=== PATIENT | female | born 1985 | race Caucasian/White ===

== ENCOUNTER 2022-05-07 09:17 | Outpatient (CLI) | payer OTHER, SELFPAY ==
[2022-05-07 12:46] LABS: Albumin* 4.4 g/dL (3.3-5.0)
[2022-05-07 12:49] LABS: Alanine Aminotransferase* 19 U/L (4-35); Alkaline Phosphatase* 82 U/L (40-150); Aspartate Amino Transferase* 24 U/L (12-35); Bilirubin Direct* 0.2 mg/dL (0.0-0.5); Bilirubin Total* 0.4 mg/dL (0.1-1.5); Total Protein* 7.3 g/dL (6.0-8.3)
== END 2022-05-07 09:18 | disposition home or self-care (01) ==
LOC: LONREF 09:21
PROVIDERS: PCP Family Medicine; Visit Provider Family Medicine
DX: Z01.419 Encounter for gynecological examination (general) (routine) without abnormal findings (principal); R10.9 Unspecified abdominal pain; K76.89 Other specified diseases of liver
CPT/HCPCS: 80076

== ENCOUNTER 2022-05-14 08:26 | Outpatient (CLI) | payer OTHER, SELFPAY ==
--- NOTE | 2022-05-14 09:00 | CRLHL7_ITS ---
For Patients: As a result of the Century Cures Act, medical imaging exams and procedure reports are released immediately into your electronic medical record. You may view this report before your referring provider. If you have questions, please contact your health care provider. Indication: Evaluate liver or pancreas cyst/mass Technique: Postcontrast CT abdomen and pelvis. 72 cc Isovue 370 intravenous contrast. Please note that all CT scans at this facility use dose modulation, iterative reconstruction, and/or weight-based dosing when appropriate to reduce radiation dose to as low as reasonably achievable. Comparison: None Findings: Lung bases are clear. No free intraperitoneal air. Normal liver. No suspicious intrahepatic mass. The gallbladder is normal. No calcified gallstones or biliary obstruction. No pancreatic mass. The spleen is normal. Normal adrenal glands. The kidneys are normal. No adenopathy. No small bowel obstruction. The uterus is located within the right paramidline of the pelvis. A collapsing right ovarian cyst is present measuring 2.1 cm. No uterine fibroid. Normal left ovary. Increased stool in the rectum. No inflammatory changes. The appendix is normal. Degenerative disc disease at L5-S1. No fracture is present. The bladder is distended. No wall thickening. Impression: No intra-abdominal cystic mass. Increased stool within the rectum suggesting constipation. Incidental distended bladder without hydronephrosis. Also incidental collapsing right ovarian cyst. Please note that all CT scans at this facility use dose modulation, iterative reconstruction, and/or weight-based dosing when appropriate to reduce radiation dose to as low as reasonably achievable. Dictated by Haroon Hahn MD @ 05/14/2022 12:09:57 PM (Electronically Signed)
== END 2022-05-14 08:27 | disposition home or self-care (01) ==
PROVIDERS: PCP Family Medicine; Visit Provider Family Medicine
DX: K76.89 Other specified diseases of liver (principal)
CPT/HCPCS: 74177; Q9967

== ENCOUNTER 2023-11-11 14:04 | Outpatient (CLI) | payer OTHER, SELFPAY | END 2023-11-11 14:05 | disposition home or self-care (01) | LOC: LKVREF 14:07 | PROVIDERS: PCP Family Medicine; Visit Provider Family Medicine | DX: Z13.220 Encounter for screening for lipoid disorders (principal) | CPT/HCPCS: 80061 ==

== ENCOUNTER 2024-09-24 09:16 | Outpatient (CLI) | payer BC, SELFPAY | END 2024-09-24 09:17 | disposition home or self-care (01) | PROVIDERS: PCP Family Medicine; Visit Provider Family Medicine | DX: I10 Essential (primary) hypertension (principal); R63.5 Abnormal weight gain; Z13.0 Encounter for screening for diseases of the blood and blood-forming organs and certain disorders involving the immune mechanism | CPT/HCPCS: 80053; 84443 ==

== ENCOUNTER 2024-12-14 11:12 | Emergency (ER) | payer BC, SELFPAY ==
--- OUTSIDE RECORDS SUMMARY | 2024-12-14 11:13 | XMS_ITS | Patient Health Record ---
Author Organization [facility] Billing Info Address [address] [place] [id number] Care Team Providers Care Human Resources Intern Name Role Phone MARGY Eisenberg Unavailable Allergies Allergen (clinical drug ingredient) Drug/Non Drug Allergy documented on EMR Reaction Allergy Type Onset Date Status amoxicillin / clavulanate Augmentin hives/swelling Drug Allergy Active Reason For Referral No Information Medications Medication SIG (Take, Route, Fr equency, Duration) Notes Start Date End Date Status Skippers 7.5-325 MG 1-2 tablet as needed Orally every 6 hrs 11/20/2012 Not-Taking Tramadol HCl 50 MG 1-2 tablets as neede d Orally every 6 hrs 05/01/2014 Not-Taking Vitamin Act terrance Abilify 5 MG 1 tablet Orally Once a day Active Nexium Not-Taking Mirena 20 MCG/24HR 2010 Not-Taking Concerta Not-Taking Voltaren 75 mg 1 tablet Orally Two times a day for 30 day(s) 05/01/2014 Not-Taking Robaxin-750 750 MG 1 tablet Orally ever y 6 hrs for 30 day(s) 05/01/2014 Not-Taking Celebrex 200 mg 1 capsule Orally Onc e a day for 30 day(s) 06/26/2014 Not-Taking Topamax 50 MG 1 tablet Orally Twice a day Not-Taking Social History Tobacco Use: Social History Observation Description Date Details (start date - stop date) Current some da y smoker NA - NA Tobacco Status: Question Answer Notes Patient is a current some day smoker 6-8/da bri Problems Problem Type SNOMED Code ICD Code Onset Dates Problem Status W/U Status Risk Notes Problem 43332206 Pre-conception counseling (V26.49) Active confirmed Problem 936121064 Low back pain (724.2) Active confirmed Problem 594439528 Encounter for IUD removal (Z30.432) Active confirmed Plan Of Treatment Pending Test Test Name Order Date IUD REMOVAL (64204) 08/28/2015 Pap IG, rfx HPV ASCU,16/18 ([id number]) 0 10/17/2014 Medical (General) History Medical History History ICD Code ADHD depression/PTSD stomach ulcers history of abnormal pap History of PTL and PIH, dania marely with po medication and bedrest, term delivery Surgical History Surgery Date(Month/Year) tonsillectomy 05/2004 03/02/06 Colposcopy 2009 or 2010 IUD removal 08-28-15
--- OUTSIDE RECORDS SUMMARY | 2024-12-14 11:14 | XMS_ITS | Clinical Summary ---
Author Organization [email or web address] Address [address] [place] [address] Care Team Providers Care Corrosion Control Fitter Name Role Phone Unassigned, Provider Primary Care Provider Unava ilable Source Comments You are receiving this document as you are listed as the primary care provider,follow-up provider, or the patient has been referred to you for consultation.This is in compliance with the Medicare andMedicaid EHR Incentive Program,which states Providers who transition their patient to another setting of careor provider of care or refers their patient to another provider of care shouldprovide summary care record for each transition of care or referral. [email or web address] Allergies Active Allergy Reactions Criticality Noted Date Comments Clavulanic Acid Rash 02/08/2023 Medications amphetamine-dext roamphetamine XR (ADDERALL XR) 30 MG 24 hour release capsule Take 1 Capsule (30 mg) by mouth daily. 3 Active ARIPiprazole (ABILIFY) 5 MG tablet Take 1 Tablet (5 mg) by mouth daily. Active celecoxib (CELEBREX) 200 MG capsule Take 1 Capsule (200 mg) by mouth daily. 3 Active diclofenac (VOLTAREN) 1 % gel diclofenac 1 % topical gel Active labetalol (TRANDATE) 200 MG tablet labetalol 200 mg tablet Active topiramate (TOPAMAX) 50 MG tablet Take 1 Tablet (50 mg) by mouth two times a day. 3 Active fluticasone propionate (FLONASE) 50 MCG/ACT nasal solutionIndicati ons:Allergic rhinitis, unspecified seasonality, unspecified trigger,Acute bacterial sinusitis Place 2 Sprays into both nostrils daily. 16 g 11 3 Active olopatadine 0.1 % eye drop solutionIndicati ons:Allergic rhinitis, unspecified seasonality, unspecified trigger Place 1 Drop into both eyes two times a day. 5 mL 3 Active fexofenadine (GEOVANNA) 180 MG tabletIndication s:Allergic rhinitis, unspecified seasonality, unspecified trigger Take 1 Tablet (180 mg) by mouth daily as needed for Other (allergy symptoms). 30 Tablet 1 3 Active benzonatate (TESSALON) 200 MG capsule Take by mouth. 4 Active doxycycline monohydrate (MONODOX) 100 MG capsule Take 1 Capsule (100 mg) by mouth two times a day. 4 Active traMADol (ULTRAM) 50 MG tablet Take 1 Tablet (50 mg) by mouth three times a day as needed. 4 Active amphetamine-dext roamphetamine (ADDERALL) 20 MG tablet Take 1 Tablet (20 mg) by mouth two times a day. 4 Active predniSONE (DELTASONE) 10 MG tablet Take 6 tabs day 1, 5 day 2, 4 day 3, 3 day 4, 2 days 5-7 24 Tablet 4 Active Active Problems No known active problems Immunizations Immunization Administration Dates Next Due DTP 04/20/1999, 3,01/14/1992,1990,04/10/1987 HepB, Unspecified Formulation 01/22/1999, 998,01/22/1998 Influenza IIV4 (Quadrivalent ) 0.5mL (97118) 02/22/2017 MMR 01/14/1992,12/28/1989 Polio, Unspecified Formulation 01/14/1992,1990,04/10/1987 Social History Tobacco Use Types Packs/Day Years Used Date Smoking Tobacco: Every Day Cigarettes Tobacco Cessation:Ready to Q uit: Not Asked; Counseling Given: Not Answered Comments No Sex and Gender Information Value Date Recorded Sex Assigned at Not on file Legal Sex Female 7:18 AM CDT Gender Identity Not on file Sexual Orientation Not on file Last Filed Vital Signs Vital Sign Reading Time Taken Comments Blood Pressure 158/107 05/14/2024 9:22 AM CAKE INSPECTOR Pulse 108 05/14/2024 9:22 AM CAKE INSPECTOR Temperature 36.6 C (97.9 F) 05/14/2024 9:22 AM CAKE INSPECTOR Respiratory Rate 18 05/14/2024 9:22 AM CAKE INSPECTOR Oxygen Saturation 100% 05/14/2024 9:22 AM CAKE INSPECTOR Inhaled Oxygen Concentration - - Weight 67.6 kg (148 lb 15.8 oz) 009 10:29 AM CAKE INSPECTOR C: 67.6kg Height - - Body Mass Index - - Plan of Treatment Health Maintenance Due Date Last Done Comments Hep C Screening (Preventive Services) 1986 Cervical Cancer Screening Due 01/17/2002 01/16/2002 HIV Screening (Preventive Services) 2002 Adult Preventive Visit 2004 Pneumococcal Vaccine (1 of 2 - PCV) 2005 DTaP/Tdap/Td Vaccine (6 - Tdap) 04/20/2009 04/20/1999, 03/31/1993, 01/14/1992, Additional history exists COVID-19 Vaccine ( season) 2024 Influenza Vaccine (#1) 2025 02/22/2017 Zoster/Shingles Vaccine (1 of 2) 2036 IPV (Polio) Vaccine Completed 01/14/1992, 06/29/1990, 04/10/1987 HepB Vaccine Completed 01/22/1999, 01/29, 01/22/1998 HPV Vaccine Aged Out No longer eligi ble based on patient's age to complete this topic HepA Vaccine Aged Out No longer eligi ble based on patient's age to complete this topic Hib Vaccine Aged Out No longer eligi ble based on patient's age to complete this topic MCV4 Vaccine Aged Out No longer eligi ble based on patient's age to complete this topic Meningococcal B Vaccine Aged Out No l onger eligible based on patient's age to complete this topic Procedures Procedure Name Priority Date/Time Associated Diagnosis Comments ANATOMICAL PATH-C Routine 01/16/2002 6:1 4 AM CDT from Last 3 Months or Most Recently Relevant to Health Maintenance Results * Anatomical Path-C (01/16/2002 6:14 AM CDT) PAP Smear SEE TEXT No normal range HP CONVERSION Comment: Patient: RINKU ALVAREZ CERVICAL CYTOLOGY REPORT Pathology # [id number] Date Obtained: Date Received: LMP: 4 WKS AGO CLINICAL HIST 1ST PAP CERVICAL SMEAR SPECIMEN ADEQUACY: Satisfactory. ENDOCERVICAL CELLS: Present. CYTOLOGIC IMPRESSION: Within Normal Limits (Negative). Verified 01/30/02 by: LBM (electronic signature) 01/16/2002 6:14 AM CDT us Elizabeth Mason APRN, ENGINEER PROCESS LAB_1 Final R esult HP CONVERSION from Last 3 Months or Most Recently Relevant to Health Maintenance Insurance [facility] Care Teams Corrosion Control Fitter Relationship Specialty Start Date End Date Unassigned, Provider [address] [place] [address] PCP - General 03/27/01
--- OUTSIDE RECORDS SUMMARY | 2024-12-14 11:14 | XMS_ITS | Clinical Summary ---
Author Organization [facility] Address [address] [place] [address] Care Team Providers Care Bank Officer Name Role Phone None Reported, Pcp Primary Care Provider Unavail able Source Comments Patient records contain information from all sites at [facility]. For routine questions regarding patient records, call [phone] during business hours, M-F 8:00 AM - 5:00 PM Central Time. Record requests for emergency care only can be directed to [phone] at any time.[facility] Allergies Active Allergy Reactions Criticality Noted Date Comments Clavulanic Acid Hives only, no other systemic symptoms,Rash 05/07/2022 Medications traMADoL (Ultram) 50 mg tablet Take 1 tablet by mouth every 8 (eight) hours as needed for pain. 4 Active fluticasone propionate (Flonase) 50 mcg/actuation nasal spray Administer 2 sprays into each nostril daily. 3 Active fexofenadine (Cat) 180 mg tablet Take 180 mg by mouth daily as needed. 3 Active dextroamphetami ne-amphetamine (AdderalL) 20 mg tablet TAKE 1 TABLET BY MOUTH TWICE DAILY AT LEAST 4 TO 6 HOURS APART 4 Active ARIPiprazole (Abilify) 5 mg tablet Take 1 tablet by mouth daily. Active topiramate (Topamax) 50 mg tablet Take 50 mg by mouth. 3 Active benzonatate (Tessalon) 200 mg capsule Take 1 capsule (200 mg total) by mouth 3 (three) times a day as needed for cough. 20 capsule 4 Active Active Problems No known active problems Social History Tobacco Use Types Packs/Day Years Used Date Smoking Tobacco: Every Day Cigarettes Passive Smoke Exposure: Current Tobacco Cessation:Ready to Q uit: Not Asked; Counseling Given: Not Answered Alcohol Use Standard Drinks/Week Comments Not Currently 0 (1 standard drink = 0.6 oz pur e alcohol) Comments No Sex and Gender Information Value Date Recorded Sex Assigned at Not on file Legal Sex Female 11:16 AM HEAD SWAMPER Gender Identity Not on file Sexual Orientation Not on file Last Filed Vital Signs Vital Sign Reading Time Taken Comments Blood Pressure 133/83 04/27/2024 11:26 AM HEAD SWAMPER Pulse 101 04/27/2024 11:26 AM HEAD SWAMPER Temperature 37.8 C (100 F) 04/27/2024 11:26 AM HEAD SWAMPER Respiratory Rate 20 04/27/2024 11:26 AM HEAD SWAMPER Oxygen Saturation 99% 04/27/2024 11:26 AM HEAD SWAMPER Inhaled Oxygen Concentration - - Weight 67.8 kg (149 lb 6.4 oz) 04/27/2024 11:22 AM HEAD SWAMPER Height 157.5 cm (5' 2) 04/27/2024 11:22 AM HEAD SWAMPER Body Mass Index 27.33 04/27/2024 11:22 AM HEAD SWAMPER Plan of Treatment Not on file Insurance [place] MEDICAID Care Teams Bank Officer Relationship Specialty Start Date End Date None Reported, Pcp PCP - General Family Medicine 04/27/24
[2024-12-14 11:23] VITALS: BP 155/70; PULSE 89; RESP 18; TEMP 36.6; O2SAT 100; BMI 27.1
--- NOTE | 2024-12-14 11:45 | ED_ITS ---
HPI - General Adult General Chief complaint: Skin/Abscess/Foreign Body Stated complaint: rash on back of legs- both Time Seen by Provider: 12/14/24 11:18 History of Present Illness HPI narrative: Patient presents to the emergency department complaining of skin irritation . Patient states this started on Tuesday and continues to get worse. Patient states she initially thought it was irritation due to shaving her legs however it is progressively getting worse. Patient is itching the area and has some broken skin in the area. 39-year-old woman presenting to the emergency department with concern of itchy rash. Involving lower buttocks, posterior thighs, legs. No fever. No drainage. Been trying calamine and seems to help for seconds and then all the irritation is back. Was out camping this last week. Unknown exposures. Did slip on what sounds like an embankment or something outside when trying to retrieve fishing line. Was in water very briefly. Has become somewhat anxious after googling. It sounds like has some concern of scabies as well. Related Data Previous Rx's ?Medication ?Instructions ?Recorded dextroamphetamine-amphetamine 20 20 mg PO BID #60 tabs 09/06/24 mg tablet alprazolam 0.25 mg tablet (Xanax) 0.25 mg PO BID PRN a nxiety #20 tabs 09/24/24 aripiprazole 5 mg tablet (Abilify) 5 mg PO QDAY #90 ta bs 09/24/24 labetalol 100 mg tablet 100 mg PO BID #180 tabs 08/29 01/21 topiramate 50 mg tablet (Topamax) 50 mg PO BID #180 ta bs 09/24/24 tramadol 50 mg tablet 50 mg PO TID PRN pain #30 ta bs 09/24/24 dextroamphetamine-amphetamine 10 10 mg PO QNOON #30 ta bs 12/06/24 mg tablet dextroamphetamine-amphetamine 30 30 mg PO QAM #30 tabs 12/06/24 mg tablet cephalexin 500 mg capsule 500 mg PO TID 7 days #21 cap s 12/14/24 hydrocortisone 2.5 % topical cream 1 applic topical QI D PRN #30 grams 12/14/24 Allergies Allergy/AdvReac Type Severity Reaction Status Date / Time clavulanic acid Allergy Unknown Hives Verified 12/14/24 11:31 Review of Systems Status of ROS: Reports: 6 or more systems reviewed and unremarkable except as noted in History and below [facility] Surgical History Status post tonsillectomy and adenoidectomy ?Z90.89 - Acquired absence of other organs (ICD-10) Status post tubal ligation ?Z98.51 - Tubal ligation status (ICD-10) Status post ?Z98.891 - History of uterine scar from previous surgery (ICD-10) Social History Smoking Status: Current every day smoker How often do you have a drink containing alcohol: never AUDIT-C Alcohol total score: 0 Non-prescribed substance use: denies use Exam Narrative: Exam Narrative: Pleasant. Seems uncomfortable with regard to this rash. She is breathing easily. No stridor. Rash is limited to areas as mentioned in the HPI. She has over the lower buttock and posterior upper thighs, faint erythema without induration. There is some serous drainage on the left lower leg where there more excoriations. Appears to be more concentration of maculopapular eruptions over the upper thigh/lower buttocks bilaterally and below the knees anteriorly. Otherwise are scattered as well. Some areas of might be a few in a row but otherwise not. I do not see burrows. There are no lesions on her hands and not so much over feet and ankles. Const: Vital Signs, click to edit/add: Vital Signs - 24 hr 12/14/24 11:23 Temperature 98 F Pulse Rate [Right Pulse Oximeter] 89 Respiratory Rate 18 Blood Pressure [Ri ght Upper Arm] 155/70 H Pulse Oximetry 100 Oxygen Delivery Me thod Room Air Documenting provider has reviewed patient's vital signs: yes Course Vital Signs Vital signs: Initial Vital Signs Temperature 98 F 12/14/24 11:23 Temperature Source Temporal Artery Scan 12/14/24 11:23 Pulse Rate 89 12/14/24 11:23 Pulse Rhythm Regular 12/14/24 11:23 Pulse Strength 3+ Normal 12/14/24 11:23 Respiratory Rate 18 12/14/24 11:23 Blood Pressure 155/70 H 12/14/24 11:23 Blood Pressure Mean 98 12/14/24 11:23 Blood Pressure Position Sitting 12/14/24 11:23 Pulse Oximetry 100 12/14/24 11:23 Oxygen Delivery Method Room Air 12/14/24 11:23 Vital Signs Temperature 98 F 12/14/24 11:23 Pulse Rate 89 12/14/24 11:23 Respiratory Rate 18 12/14/24 11:23 Blood Pressure 155/70 H 12/14/24 11:23 Pulse Oximetry 100 12/14/24 11:23 Oxygen Delivery Method Room Air 12/14/24 11:23 Temperature 98 F 12/14/24 11:23 Pulse Rate 89 12/14/24 11:23 Respiratory Rate 18 12/14/24 11:23 Blood Pressure 155/70 H 12/14/24 11:23 Pulse Oximetry 100 12/14/24 11:23 Oxygen Delivery Method Room Air 12/14/24 11:23 Medical Decision Making MDM Narrative Medical decision making narrative: Unclear rash. Does not follow specific pattern. Maybe sand fleas? There are some areas that would be typical for scabies but unlikely to be in all the areas as mentioned, at least in this acute setting. I do not see evidence of burrowing. These are not particularly like mosquito bites and furthermore does not appear to be effected elsewhere by them. Not the kind of pattern I would typically see with a plant exposure. I think at this point will just treat with symptoms. I do not think needs benzodiazepines for itch alone; has not exhausted typical treatment options. I do not think has quite a cellulitis but with continued excoriation might develop this. See patient discharge plan for further discussion I am sending in a slightly stronger steroid cream than you can buy [id number] that you may try. Primary treatment initially will be oral prednisone from [facility]. For breakthrough itch I would also take diphenhydramine. Maybe this would be better in the evenings. If you do notice though that (and this would probably be related to continued scratching) you start to have broader areas of marked increase in redness and heat and tenderness of your skin, this could be a cellulitis. Antibiotic will be on hold at the pharmacy for that if you need. Otherwise would try cold compresses or rubbing irritated areas, itchy areas with ice packs/cubes. Might try a copious amount of baking soda in tepid water bath. Medical Records Medical records reviewed: Yes I reviewed the patient's medical records Discharge Plan Discharge Clinical Impression: Rash Patient Disposition: Home, Self-Care Condition: Stable Additional Instructions: I am sending in a slightly stronger steroid cream than you can buy [id number] that you may try. Primary treatment initially will be oral prednisone from [facility]. For breakthrough itch I would also take diphenhydramine. Maybe this would be better in the evenings. If you do notice though that (and this would probably be related to continued scratching) you start to have broader areas of marked increase in redness and heat and tenderness of your skin, this could be a cellulitis. Antibiotic will be on hold at the pharmacy for that if you need. Otherwise would try cold compresses or rubbing irritated areas, itchy areas with ice packs/cubes. Might try a copious amount of baking soda in tepid water bath. Prescriptions: New hydrocortisone 2.5 % cream 1 applic topical QID PRNQty: 30 1RF cephalexin 500 mg capsule 500 mg PO TID 7 Days Qty: 21 0RF No Action alprazolam [Xanax] 0.25 mg tablet 0.25 mg PO BID PRN (Reason: anxiety) Qty: 20 0RF aripiprazole [Abilify] 5 mg tablet 5 mg PO QDAY Qty: 90 1RF topiramate [Topamax] 50 mg tablet 50 mg PO BID Qty: 180 3RF tramadol 50 mg tablet 50 mg PO TID PRN (Reason: pain) Qty: 30 0RF labetalol 100 mg tablet 100 mg PO BID Qty: 180 0RF dextroamphetamine-amphetamine 20 mg tablet 20 mg PO BID Qty: 60 0RF Rx Instructions: administer doses at least 4-6 hours apart dextroamphetamine-amphetamine 10 mg tablet 10 mg PO QNOON Qty: 30 0RF dextroamphetamine-amphetamine 30 mg tablet 30 mg PO QAM Qty: 30 0RF Follow Up/Referrals: Lex Ariza MD [Primary Care Provider, Family Practice] Stand Alone Forms: [employer] Info Instructions
== END 2024-12-14 12:30 | disposition home or self-care (01) ==
LOC: ED 12:20
PROVIDERS: Emergency Provider Family Medicine; PCP Family Medicine
DX: R21 Rash and other nonspecific skin eruption (principal)
CPT/HCPCS: 99283; 99284

== ENCOUNTER 2025-03-01 08:29 | Emergency (ER) | payer BC, SELFPAY ==
--- OUTSIDE RECORDS SUMMARY | 2025-03-01 08:31 | XMS_ITS | Clinical Summary ---
Author Organization [facility] Address [address] [place] [address] Care Team Providers Care Resource Specialist Teacher Name Role Phone None Reported, Pcp Primary Care Provider Unavail able Source Comments Patient records contain information from all sites at [facility]. For routine questions regarding patient records, call [phone] during business hours, M-F 8:00 AM - 5:00 PM Central Time. Record requests for emergency care only can be directed to [phone] at any time.[facility] Allergies Active Allergy Reactions Criticality Noted Date [...] on file Legal Sex Female 11:16 AM LATHE SET UP PERSON Gender Identity Not on file Sexual Orientation Not on file Last Filed Vital Signs Vital Sign Reading Time Taken Comments Blood Pressure 133/83 04/27/2024 11:26 AM LATHE SET UP PERSON Pulse 101 04/27/2024 11:26 AM LATHE SET UP PERSON Temperature 37.8 C (100 F) 04/27/2024 11:26 AM LATHE SET UP PERSON Respiratory Rate 20 04/27/2024 11:26 AM LATHE SET UP PERSON Oxygen Saturation 99% 04/27/2024 11:26 AM LATHE SET UP PERSON Inhaled Oxygen Concentration - - Weight 67.8 kg (149 lb 6.4 oz) 04/27/2024 11:22 AM LATHE SET UP PERSON Height 157.5 cm (5' 2) 04/27/2024 11:22 AM LATHE SET UP PERSON Body Mass Index 27.33 04/27/2024 11:22 AM LATHE SET UP PERSON Plan of Treatment Not on file Insurance [place] MEDICAID Care Teams Resource Specialist Teacher Relationship Specialty Start Date End Date None Reported, Pcp PCP - General Family Medicine 04/27/24
--- OUTSIDE RECORDS SUMMARY | 2025-03-01 08:31 | XMS_ITS | Patient Health Record ---
Author Organization [facility]illing Info Address [address] [place] [id number] Care Team Providers Care Technical Healthcare Consultant Name Role Phone MARGY Eisenberg Unavailable [phone] Allergies Allergen (clinical drug ingredient) Drug/Non Drug Allergy documented on EMR Reaction Allergy Type Onset Date Status amoxicillin / clavulanate Augmentin hives/swelling Drug Allergy Active Reason For Referral No Information Medications Medication SIG (Take, Route, Fr equency, Duration) Notes Start Date End Date Status Allen 7.5-325 MG 1-2 tablet as needed Orally [...] Problem Status W/U Status Risk Notes Problem 40161421 Pre-conception counseling (V26.49) Active confirmed Problem 957462116 Low back pain (724.2) Active confirmed Problem 335266118 Encounter for IUD removal (Z30.432) Active confirmed Plan Of Treatment Pending Test Test Name Order Date IUD REMOVAL (53469) 08/28/2015 Pap IG, rfx HPV ASCU,16/18 ([id number]) 0 10/17/2014 Medical (General) History Medical History History ICD Code ADHD depression/PTSD stomach ulcers history of abnormal pap History of PTL and PIH, dania marely with po medication and bedrest, term delivery Surgical History Surgery Date(Month/Year) tonsillectomy 05/2004 03/02/06 Colposcopy 2009 or 2010 IUD removal 08-28-15
--- OUTSIDE RECORDS SUMMARY | 2025-03-01 08:32 | XMS_ITS | Clinical Summary ---
Author Organization [employer] Address [address] [place] [address] Care Team Providers Care Toe Puncher Name Role Phone Unassigned, Provider Primary Care [...] for each transition of care or referral. [employer] Allergies Active Allergy Reactions Criticality Noted Date [...] 01/22/1999, 998,01/22/1998 Influenza IIV4 (Quadrivalent ) 0.5mL ([id number]) 02/22/2017 MMR 01/14/1992,12/28/1989 Polio, Unspecified Formulation 01/14/1992,1990,04/10/1987 [...] Comments Blood Pressure 158/107 05/14/2024 9:22 AM [employer] Pulse 108 05/14/2024 9:22 AM [employer] Temperature 36.6 C (97.9 F) 05/14/2024 9:22 AM [employer] TE[employer]ER Respiratory Rate 18 05/14/2024 9:22 AM [employer] TE[employer]ER Oxygen Saturation 100% 05/14/2024 9:22 AM [employer]ER Inhaled Oxygen Concentration - - Weight 67.6 kg (148 lb 15.8 oz) 009 10:29 AM [employer] TE[employer] C: 67.6kg Height - - Body Mass Index - - Plan of Treatment Health Maintenance Due Date Last Done Comments Hep C Screening (Preventive Services) 1986 Cervical Cancer Screening Due 01/17/2002 01/16/2002 HIV Screening (Preventive Services) 2002 Adult Preventive Visit 2004 Pneumococcal Vaccine (1 of 2 - PCV) 2005 DTaP/Tdap/Td Vaccine (6 - Tdap) 04/20/2009 04/20/1999, 03/31/1993, 01/14/1992, Additional history exists HPV Vaccine (1 - 3-dose SCDM series) 2013 COVID-19 Vaccine ( season) 2025 Influenza Vaccine (#1) 2025 02/22/2017 Zoster/Shingles Vaccine (1 of 2) 2036 IPV (Polio) Vaccine Completed 01/14/1992, 06/29/1990, 04/10/1987 HepB Vaccine Completed 01/22/1999, 01/29, 01/22/1998 HepA Vaccine Aged Out No longer eligi [...] RINKU ALVAREZ CERVICAL CYTOLOGY REPORT Pathology # [id number] Date Obtained: Date Received: LMP: 4 WKS AGO CLINICAL HIST 1ST PAP CERVICAL SMEAR SPECIMEN ADEQUACY: Satisfactory. ENDOCERVICAL CELLS: Present. CYTOLOGIC IMPRESSION: Within Normal Limits (Negative). Verified 01/30/02 by: LBM (electronic signature) 01/16/2002 6:14 AM CDT us Elizabeth Mason APRN, SUPPLY CHAIN ASSOCIATE LAB_1 Final R esult HP CONVERSION from Last 3 Months or Most Recently Relevant to Health Maintenance Insurance [facility] Care Teams Toe Puncher Relationship Specialty Start Date End Date Unassigned, Provider [address] [place] [id number] PCP - General 03/27/01
[2025-03-01 08:36] VITALS: BP 150/97; PULSE 84; RESP 16; TEMP 36.4; O2SAT 99; BMI 28.5
--- NOTE | 2025-03-01 08:51 | CRLHL7_ITS ---
For Patients: As a result of the Century Cures Act, medical imaging exams and procedure reports are released immediately into your electronic medical record. You may view this report before your referring provider. If you have questions, please contact your health care provider. INDICATION: LOW BACK PAIN AROUND L4 AFTER FALL. TECHNIQUE: CT of the lumbar spine was performed without intravenous contrast. COMPARISON: 07/15/2022. FINDINGS: Alignment: Normal. Vertebrae: Vertebral bodies and posterior elements are intact without acute fracture. Mild degenerative changes of the visualized spine. Extra-vertebral soft tissues: Normal. Visualized abdomen/pelvis: Normal. Additional comment: None. IMPRESSION: No acute displaced fracture or malalignment of the lumbar spine. Please note that all CT scans at this facility use dose modulation, iterative reconstruction, and/or weight-based dosing when appropriate to reduce radiation dose to as low as reasonably achievable. Dictated by Lloyd Go MD @ 03/01/2025 11:03:16 AM (Electronically Signed)
--- NOTE | 2025-03-01 08:56 | CRLHL7_ITS ---
For Patients: As a result of the Century Cures Act, medical imaging exams and procedure reports are released immediately into your electronic medical record. You may view this report before your referring provider. If you have questions, please contact your health care provider. INDICATION: LOW BACK PAIN AROUND L4 AFTER FALL; LOW ABDOMINAL PAIN TECHNIQUE: CT of the abdomen and pelvis was obtained with 77 mL of Isovue 370 intravenous contrast. Please note that all CT scans at this facility use dose modulation, iterative reconstruction, and/or weight-based dosing when appropriate to reduce radiation dose to as low as reasonably achievable. COMPARISON: None. FINDINGS: Lower thorax: Left lower lobe cystic changes. Liver and biliary tree: Subcentimeter hypoattenuating lesions are too small to characterize and are favored to represent cysts. Gallbladder: Normal. Spleen: Normal. Pancreas: Normal. Adrenal glands: Normal. Kidneys and ureters: No hydronephrosis. No obstructing renal calculi. Gastrointestinal tract: Mild descending and sigmoid colonic diverticulosis without CT evidence of acute diverticulitis. No evidence of acute appendicitis. No evidence of bowel obstruction. Peritoneal cavity: Small amount of free fluid within the pelvis. Bladder: Normal. Pelvic organs: Heterogeneous appearance of the uterus and left adnexa with 3.8 centimeter complex left adnexal mass (7/111). Vasculature: Normal. Lymph nodes: Normal. Abdominal wall: Normal. Musculoskeletal: Normal. IMPRESSION: Small amount of nonspecific free fluid within the pelvis. Heterogeneous appearance of the uterus and adnexa with 3.8 centimeter complex left adnexal mass. Consider pelvic ultrasound for further evaluation given the patient`s reported symptoms of lower abdominal pain. Please note that all CT scans at this facility use dose modulation, iterative reconstruction, and/or weight-based dosing when appropriate to reduce radiation dose to as low as reasonably achievable. Dictated by Lloyd Go MD @ 03/01/2025 11:14:15 AM (Electronically Signed)
--- NOTE | 2025-03-01 09:00 | ED_ITS ---
HPI - Back Pain/Injury General Date Seen: 03/01/25 Chief Complaint: Back Injury/Pain Stated Complaint: Fell in shower and injured lower back Time Seen by Provider: 03/01/25 08:45 Source: patient Mode of arrival: ambulatory Limitations: no limitations History of Present Illness HPI Narrative: Patient is a 39-year-old female presenting to the emergency department for low back pain and abdominal pain. States yesterday she fell in the shower and her low back hit right against the metal rail. States she has had previous injuries to this back in his degenerative disc disorder to this area. She states the pain has been getting worse and she was unable to sleep all night because of the pain. She tried to go to work again but states she could barely walk so she came to the emergency department. Does state her lower extremities feel numb but unsure how long they have been feeling numb for. Also states she has some saddle anesthesia. When asked if she is fully emptying her bladder she states she is not sure and does not feel like she is. Has also been having lower abdominal pain since the fall. States she feels like she gave herself a hernia. She does believe she has a hernia in the epigastric region based on some googling. Also is concerned she has hernias in her lower abdomen. Has had previous C-sections. Denies any chest pain, shortness of breath, nausea, vomiting, headache, lightheadedness, dizziness, weakness. No other concerns noted Related Data Previous Rx's ?Medication ?Instructions ?Recorded dextroamphetamine-amphetamine 20 20 mg PO BID #60 tabs 09/06/24 mg tablet alprazolam 0.25 mg tablet (Xanax) 0.25 mg PO BID PRN a nxiety #20 tabs 09/24/24 aripiprazole 5 mg tablet (Abilify) 5 mg PO QDAY #90 ta bs 09/24/24 labetalol 100 mg tablet 100 mg PO BID #180 tabs 08/29 01/21 topiramate 50 mg tablet (Topamax) 50 mg PO BID #180 ta bs 09/24/24 cephalexin 500 mg capsule 500 mg PO TID 7 days #21 cap s 12/14/24 hydrocortisone 2.5 % topical cream 1 applic topical QI D PRN #30 grams 12/14/24 dextroamphetamine-amphetamine 10 10 mg PO QNOON #30 ta bs 02/04/25 mg tablet dextroamphetamine-amphetamine 30 30 mg PO QAM #30 tabs 02/04/25 mg tablet tramadol 50 mg tablet 50 mg PO TID PRN pain #30 ta bs 02/04/25 Allergies Allergy/AdvReac Type Severity Reaction Status Date / Time clavulanic acid Allergy Unknown Hives Verified 03/01/25 10:49 Review of Systems Status of ROS: Reports: 10 or more systems reviewed and unremarkable except as noted in History and below [facility] Surgical History Status post tonsillectomy and adenoidectomy ?Z90.89 - Acquired absence of other organs (ICD-10) Status post tubal ligation ?Z98.51 - Tubal ligation status (ICD-10) Status post ?Z98.891 - History of uterine scar from previous surgery (ICD-10) Social History Smoking Status: Current every day smoker How often do you have a drink containing alcohol: never AUDIT-C Alcohol total score: 0 Non-prescribed substance use: denies use Exam 2 Narrative: Exam Narrative: Const: Well-nourished, Well-developed, in mild distress Eyes: PERRL, no conjunctival injection, and symmetrical lids HENT: Atraumatic external nose and ears. Moist mucous membranes. Neck: Symmetric, trachea midline, No thyromegaly. CVS: RRR, No murmurs or gallops. Peripheral pulses 2+ and equal in all ext remities RESP: Unlabored respiratory effort. Clear to auscultation bilaterally. GI: Lower abdominal tenderness, Nondistended, No rebound or guarding. MSK:Extremities w/o deformity, Normal Active ROM, notable tenderness at about the L4 midline region. Skin: Warm, Dry. No rashes or lesions. Neuro: Normal Muscle tone, decreased sensation to bilateral lower extremities. Normal muscle strength in lower extremities. Psych: Awake, Alert, & Oriented x3. Appropriate mood and affect. Const: Vital Signs, click to edit/add: Vital Signs - 24 hr 03/01/25 08:36 03/01/25 10:57 03/01/25 14:09 Temperature 97.6 F Pulse Rate 82 Pulse Rate [Pulse Oximeter] 84 92 Respiratory Rate 16 16 18 Blood Pressure 149/103 H Blood Pressure [Ri ght Upper Arm] 150/97 H 136/92 H Pulse Oximetry 99 98 98 Oxygen Delivery Me thod Room Air Room Air Course Vital Signs Vital signs: Initial Vital Signs Temperature 97.6 F 03/01/25 08:36 Temperature Source Temporal Artery Scan 03/01/25 08:36 Pulse Rate 84 03/01/25 08:36 Respiratory Rate 16 03/01/25 08:36 Blood Pressure 150/97 H 03/01/25 08:36 Blood Pressure Mean 114 H 03/01/25 08:36 Pulse Oximetry 99 03/01/25 08:36 Oxygen Delivery Method Room Air 03/01/25 08:36 Vital Signs Temperature 97.6 F 03/01/25 08:36 Pulse Rate 84 03/01/25 08:36 Respiratory Rate 16 03/01/25 08:36 Blood Pressure 150/97 H 03/01/25 08:36 Pulse Oximetry 99 03/01/25 08:36 Oxygen Delivery Method Room Air 03/01/25 08:36 Temperature 97.6 F 03/01/25 08:36 Pulse Rate 82 03/01/25 14:09 Respiratory Rate 18 03/01/25 14:09 Blood Pressure 149/103 H 03/01/25 14:09 Pulse Oximetry 98 03/01/25 14:09 Oxygen Delivery Method Room Air 03/01/25 10:57 Medications Administered Medications: Discontinued Medications Generic Name Dose Route Start Last Admin Trade Name Freq PRN Reason Stop Dose Admin Ketorolac Tromethamine 15 mg 03/01/25 09:24 03/01/25 09:32 Ketorolac 15 Mg/Ml Inj IVP 03/01/25 09:25 15 mg ONCE ONE Administration Ketorolac Tromethamine 15 mg 03/01/25 12:45 03/01/25 13:17 Ketorolac 15 Mg/Ml Inj IVP 03/01/25 12:46 15 mg ONCE ONE Administration MDM - Back Pain/Injury MDM Narrative Medical decision making narrative: Patient is a 39-year-old female presenting for low back pain. Considering she claims she is having saddle anesthesia and feels like she has urinary tension there is concern for cauda equina. We will do a postvoid bladder scan. Unable to get an MRI until around noon so in the meantime will do CT scan of the lumbar spine. Will also do CT scan of abdomen pelvis as she is having this lower abdominal pain. Is very unlikely she has any hernia in her epigastric region I do not see signs of hernias in her lower abdominal region. Will do CMP, CMP, lipase, urinalysis. Will also do urine test. Despite fact that she has a tubal ligation there still the small chance she could develop . She did have a 11 mL postvoid residual scan. This is reassuring. Lab work returned showing no acute concerning abnormalities. Images were reviewed by myself and the radiologist. CT scan of the abdomen pelvis shows a left adnexal mass. Is recommended to do an ultrasound so this was ordered. CT scan of the lumbar spine shows no acute abnormalities. Ultrasound of the pelvis returned showing a left ovarian follicle and a large vascular polypoid mass within the fundal endometrium. Is recommended that she follow up outpatient for direct visualization. She is not having any vaginal bleeding. MRI of the spine shows no acute abnormalities. Shows a previous known advanced disc degeneration. At this time there is no signs of cauda equina other severe emergent abnormalities. She is safe for discharge. She has been able to ambulate around. Lab Data Labs: Lab Results 03/01/25 03/01/25 Range/Units 09:10 09:20 WBC 8.34 (4.50-11.00) K/uL RBC 4.35 (4.00-5.20) m/uL Hgb 13.5 (12.0-16.0) gm/dL Hct 39.3 (33.0-51.0) % MCV 90 (80-100) fL MCH 31 (26-34) pg MCHC 34 (32-36) gm/dL RDW Coeff of Wilma 12.8 (11.5-15.5) % Plt Count 223 (140-440) K/uL Neut % (Auto) 68.7 (42.0-72.0) % Lymph % (Auto) 24.0 (20-44) % [place] % (Auto) 6.2 (0.0-11.0) % Eos % (Auto) 0.6 (0.0-7.0) % Baso % (Auto) 0.4 (0.0-3.0) % Neut # (Auto) 5.73 (1.7-7.0) K/uL Lymph # (Auto) 2.00 (0.90-2.90) K/uL [place] # (Auto) 0.50 (0.00-0.90) K/UL Eos # (Auto) 0.05 (0.00-0.50) K/uL Baso # (Auto) 0.03 (0.00-0.30) K/uL Abs Immat Gran (auto) 0.01 (0.00-0.30) K/uL Imm/Tot Granulo (auto) 0.1 % Sodium 137 (135-149) mmol/L Potassium 3.6 (3.6-5.1) mmol/L Chloride 108 (96-114) mmol/L Carbon Dioxide 21 (20-32) mmol/L Anion Gap 8 (7-15) mEq/L BUN 12 (5-24) mg/dL Creatinine 0.7 (0.5-1.5) mg/dL Estimated Creat Clear 86.18 Estimated GFR 113 ml/min Glucose 101 (60-115) mg/dL Calcium 8.7 (8.4-10.6) mg/dL Total Bilirubin 0.6 (0.1-1.5) mg/dL AST 32 (12-35) U/L ALT 17 (4-35) U/L Alkaline Phosphatase 59 (40-150) U/L Total Protein 6.9 (6.0-8.3) g/dL Albumin 4.1 (3.3-5.0) g/dL Lipase 57 (23-300) U/L Urine Color Dark yellow (Yellow) Urine Appearance Clear (Clear) Urine pH 8.5 (5.0-8.5) Ur Specific [place] 1.020 (1.000-1.030) Urine Protein Negative (Negative) Urine Glucose (UA) Negative (Negative) Urine Ketones Negative (Negative) Urine Blood Negative (Negative) Urine Nitrite Negative (Negative) Urine Bilirubin Negative (Negative) Urine Urobilinogen 0.2 (0.2-1.0) Ur Leukocyte Esterase Negative (Negative) Urine RBC 0-2 (0-2) Urine WBC 0-2 (0-5) Ur Squamous Epith Cells Moderate A (None-Few) Urine Bacteria Moderate A (None) Urine HCG, Qual Negative (Negative) Imaging Data CT scan lumbar spine: Attestation: I have reviewed the pertinent imaging results. Radiologist's impression: No acute displaced fracture or malalignment of the lumbar spine. Please note that all CT scans at this facility use dose modulation, iterative reconstruction, and/or weight-based dosing when appropriate to reduce radiation dose to as low as reasonably achievable. Dictated by Lloyd Go MD @ 03/01/2025 11:03:[address] scan abdomen and pelvis: Attestation: I have reviewed the pertinent imaging results. Radiologist's impression: Small amount of nonspecific free fluid within the pelvis. Heterogeneous appearance of the uterus and adnexa with 3.8 centimeter complex left adnexal mass. Consider pelvic ultrasound for further evaluation given the patient`s reported symptoms of lower abdominal pain. Please note that all CT scans at this facility use dose modulation, iterative reconstruction, and/or weight-based dosing when appropriate to reduce radiation dose to as low as reasonably achievable. Dictated by Lloyd Go MD @ 03/01/2025 11:14:15 AM Pelvic ultrasound: Attestation: I have reviewed the pertinent imaging results. Radiologist's impression: 1. Demonstration of a markedly thickened endometrium with large vascular polypoid mass within the fundal endometrial canal measuring 2.1 centimeters. This finding may represent a large endometrial polyp. Developing malignancy is not entirely excluded. Correlate with history of abnormal uterine bleeding and follow-up with direct visualization. 2. Redemonstration of likely involuting left ovarian follicle with additional small paraovarian cyst. Otherwise, unremarkable pelvic sonogram. Dictated by Lucio Solomon MD @ 03/01/2025 12:48:06 PM Lumbar spine MRI: Attestation: I have reviewed the pertinent imaging results. Radiologist's impression: 1. No acute fracture or marrow replacing process. 2. At L5-S1, moderate left neural foraminal stenosis. Advanced disc degeneration with accompanying type 1 reactive marrow edema. 3. At L4-5, [id number] right neural foraminal stenosis. 4. Lesser spondylotic changes at additional levels without high-grade spinal canal/neural foraminal stenosis or neural compression. Dictated by Leandro Cooney MD @ 03/01/2025 2:31:29 PM Discharge Plan Discharge Clinical Impression: Low back pain, Endometrial mass Patient Disposition: Home, Self-Care Condition: Stable Instructions: Acute Low Back Pain (ED) Additional Instructions: Take [id number] pain medication as needed for your back pain. Return to emergency department for new or worsening symptoms. There is a polypoid appearing mass within the endometrium. This is likely benign but is recommended you follow-up with gynecology. Prescriptions: No Action alprazolam [Xanax] 0.25 mg tablet 0.25 mg PO BID PRN (Reason: anxiety) Qty: 20 0RF aripiprazole [Abilify] 5 mg tablet 5 mg PO QDAY Qty: 90 1RF topiramate [Topamax] 50 mg tablet 50 mg PO BID Qty: 180 3RF labetalol 100 mg tablet 100 mg PO BID Qty: 180 0RF hydrocortisone 2.5 % cream 1 applic topical QID PRNQty: 30 1RF cephalexin 500 mg capsule 500 mg PO TID 7 Days Qty: 21 0RF dextroamphetamine-amphetamine 20 mg tablet 20 mg PO BID Qty: 60 0RF Rx Instructions: administer doses at least 4-6 hours apart tramadol 50 mg tablet 50 mg PO TID PRN (Reason: pain) Qty: 30 0RF dextroamphetamine-amphetamine 10 mg tablet 10 mg PO QNOON Qty: 30 0RF dextroamphetamine-amphetamine 30 mg tablet 30 mg PO QAM Qty: 30 0RF Follow Up/Referrals: Lex Ariza MD [Primary Care Provider, Family Practice] Stand Alone Forms: [facility] Info Instructions
[2025-03-01 09:29] LABS: Hematocrit* 39.3 % (33.0-51.0); Hemoglobin* 13.5 gm/dL (12.0-16.0); Immature Granulocytes Abs Auto 0.01 K/uL (0.00-0.30); Immature Granulocytes Pct Auto 0.1 %; Lymphocytes Absolute Auto 2.00 K/uL (0.90-2.90); Mean Corpuscular HGB Conc 34 gm/dL (32-36); Mean Corpuscular Hemoglobin 31 pg (26-34); Mean Corpuscular Volume 90 fL (80-100); RDW Coefficient of Variation % 12.8 % (11.5-15.5); Red Blood Count* 4.35 m/uL (4.00-5.20); White Blood Count* 8.34 K/uL (4.50-11.00)
[2025-03-01 09:32] LABS: Slide Review Reflex No
[2025-03-01 09:33] LABS: Appearance Urine Clear (Clear)
[2025-03-01 09:44] LABS: Albumin* 4.1 g/dL (3.3-5.0); Chloride* 108 mmol/L (96-114); Sodium* 137 mmol/L (135-149)
[2025-03-01 09:45] LABS: Potassium* 3.6 mmol/L (3.6-5.1)
[2025-03-01 09:47] LABS: Alanine Aminotransferase* 17 U/L (4-35); Alkaline Phosphatase* 59 U/L (40-150); Anion Gap 8 mEq/L (7-15); Aspartate Amino Transferase* 32 U/L (12-35); Bilirubin Total* 0.6 mg/dL (0.1-1.5); Blood Urea Nitrogen* 12 mg/dL (5-24); Carbon Dioxide* 21 mmol/L (20-32); Creatinine* 0.7 mg/dL (0.5-1.5); Est. Creatinine Clearance* 86.18; Estimated Glomerular Filt Rate 113 ml/min; Total Protein* 6.9 g/dL (6.0-8.3)
[2025-03-01 09:48] LABS: Ur HCG Qualitative* Negative (Negative)
[2025-03-01 09:48] LABS: Calcium* 8.7 mg/dL (8.4-10.6); Glucose* 101 mg/dL (60-115)
--- NOTE | 2025-03-01 10:19 | CRLHL7_ITS ---
For Patients: As a result of the Century Cures Act, medical imaging exams and procedure reports are released immediately into your electronic medical record. You may view this report before your referring provider. If you have questions, please contact your health care provider. INDICATION: Low back injury. TECHNIQUE : Lumbar spine MRI without contrast. COMPARISON: Lumbar spine CT from 03/01/2025. FINDINGS : Five lumbar type vertebral bodies, with the last fully formed disc space designated as L5-S1. Normal lumbar lordotic curve. No recent compression fracture or marrow replacing process. Lower cord/conus signal is normal. The conus terminates at a normal location. No intradural lesion. No extraspinal soft tissue abnormalities. Discs/Endplates: Moderate disc height loss disc desiccation and Schmorl`s node deformities at L2-3 and L5-S1 exhibit type 1 reactive marrow edema at the L5-S1 level. Mild disc degeneration L4-5. Remaining discs are within normal limits. Findings at individual levels as follows: Imaged lower thoracic levels and L1-2: No spinal canal or neural foraminal stenosis. T12-L1: No spinal canal or neural foraminal stenosis. L1-2: No spinal canal or neural foraminal stenosis. L2-3: Mild disc bulge. No spinal canal or neural foraminal stenosis. L3-4: No spinal canal or neural foraminal stenosis. L4-5: Mild disc bulge. Bilateral facet arthrosis. Mild left and [id number]-[id number] right neural foraminal stenosis. No spinal canal stenosis. L5-S1: Trace retrolisthesis. Moderate disc osteophyte complex, asymmetric to the left. Bilateral low-grade facet arthrosis. Mild right and moderate left neural foraminal stenosis. No spinal canal stenosis. Imaged SI joints: Minimal arthrosis. Imaged sacrum: Within normal limits. IMPRESSION: 1. No acute fracture or marrow replacing process. 2. At L5-S1, moderate left neural foraminal stenosis. Advanced disc degeneration with accompanying type 1 reactive marrow edema. 3. At L4-5, nvvm-cc-thwofqdu right neural foraminal stenosis. 4. Lesser spondylotic changes at additional levels without high-grade spinal canal/neural foraminal stenosis or neural compression. Dictated by Leandro Cooney MD @ 03/01/2025 2:31:29 PM (Electronically Signed)
[2025-03-01 10:57] VITALS: BP 136/92; PULSE 92; RESP 16; O2SAT 98
--- NOTE | 2025-03-01 11:31 | CRLHL7_ITS ---
For Patients: As a result of the Century Cures Act, medical imaging exams and procedure reports are released immediately into your electronic medical record. You may view this report before your referring provider. If you have questions, please contact your health care provider. INDICATION: Left adnexal cyst and pelvic pain TECHNIQUE: Ultrasound pelvis transabdominal and transvaginal for better assessment or to better visualize the endometrium. Real-time sonographic images with spectral and color Doppler imaging of the ovaries were obtained. COMPARISON: CT abdomen and pelvis with contrast March 01, 2025 FINDINGS: Uterus: 10.3 x 5.6 x 6.3 cm. Normal echotexture of the myometrium. No masses. Endometrium: Transvaginal imaging was performed to better evaluate the endometrium. Endometrial thickness measures 17 mm. There is demonstration of a hyperechoic avascular polypoid mass within the fundal endometrium measuring 2.1 x 1.4 centimeters. There is minimal fluid seen within the fundal endometrial canal. Right ovary measures 4.5 x 1.9 x 2.4 cm and left ovary measures 4.1 x 3.1 x 2.9 cm. Re-demonstration of likely involuting follicle within the left ovary seen on comparison CT. Additional somewhat exophytic paraovarian cyst measuring 2.4 centimeters is appreciated. No ovarian or adnexal masses. Normal arterial and venous blood flow is demonstrated in both ovaries. Cul-de-sac: No significant free fluid. IMPRESSION: 1. Demonstration of a markedly thickened endometrium with large vascular polypoid mass within the fundal endometrial canal measuring 2.1 centimeters. This finding may represent a large endometrial polyp. Developing malignancy is not entirely excluded. Correlate with history of abnormal uterine bleeding and follow-up with direct visualization. 2. Redemonstration of likely involuting left ovarian follicle with additional small paraovarian cyst. Otherwise, unremarkable pelvic sonogram. Dictated by Lucio Solomon MD @ 03/01/2025 12:48:06 PM (Electronically Signed)
[2025-03-01 14:09] VITALS: BP 149/103; PULSE 82; RESP 18; O2SAT 98
--- NOTE | 2025-03-01 14:14 | PC.NURSE ---
pt appears upset with tears in her eyes in doorway to room, states, I need to eat...I need to leave and take care of my kids...I can't have surgery today anyway because there is no one in town to care for them pt reassured we will get her food as soon as we are able, need to wait for MRI results per MD prior to PO, offered her other comfort measures and she declines at this time, call light in reach
== END 2025-03-01 15:05 | disposition home or self-care (01) ==
PROVIDERS: Emergency Provider Student in an Organized Health Care Education/Training Program; PCP Family Medicine
DX: M54.50 Low back pain, unspecified (principal); N85.8 Other specified noninflammatory disorders of uterus; W18.2XXA Fall in (into) shower or empty bathtub, initial encounter
CPT/HCPCS: 36415; 72131; 72148; 74177; 76830; 76856; 80053; 81001; 81025; 83690; 85025; 87086; 93976; 96374; 96376; 99284; 99285; J1885; Q9967

== ENCOUNTER 2025-03-06 10:20 | Outpatient (CLI) | payer BC, SELFPAY ==
[2025-03-08 22:19] LABS: HPV Source Cervical
[2025-03-14 14:18] LABS: Pap Test Digital Imaging Done
== END 2025-03-06 10:21 | disposition home or self-care (01) ==
PROVIDERS: PCP Family Medicine; Visit Provider Obstetrics & Gynecology
DX: Z12.4 Encounter for screening for malignant neoplasm of cervix (principal); N94.89 Other specified conditions associated with female genital organs and menstrual cycle
CPT/HCPCS: 87624; 87625; 88141; 88142; 88175

== ENCOUNTER 2025-03-12 15:08 | Outpatient (CLI) | payer BC, SELFPAY ==
[2025-03-12 19:47] LABS: Bacterial Vaginosis* POSITIVE (Negative); Candida glab/krus NOT DETECTED (No Detected)
[2025-03-12 20:17] LABS: Chlamydia DNA Amplified* NOT DETECTED (No Detected); GC DNA Amplified* NOT DETECTED (No Detected)
== END 2025-03-12 15:09 | disposition home or self-care (01) ==
PROVIDERS: PCP Family Medicine; Visit Provider Obstetrics & Gynecology
DX: N73.0 Acute parametritis and pelvic cellulitis (principal)
CPT/HCPCS: 81513; 86592; 86703; 87109; 87481; 87491; 87591; 87661

== ENCOUNTER 2025-05-10 15:20 | Outpatient (CLI) | payer BC, SELFPAY | END 2025-05-10 15:21 | disposition home or self-care (01) | LOC: LKVREF 15:21 | PROVIDERS: PCP Family Medicine; Visit Provider Family Medicine | DX: Z01.818 Encounter for other preprocedural examination (principal) | CPT/HCPCS: 80048 ==

== ENCOUNTER 2025-05-17 09:25 | Day surgery (SDC) | payer BC, SELFPAY ==
[2025-05-17 09:42] VITALS: BMI 27.3
[2025-05-17 09:45] VITALS: BP 125/83; PULSE 84; RESP 16; TEMP 36.7; O2SAT 97
[2025-05-17] MEDS: LACTATED RINGERS 1000 ML 1,000 ML 100 ML IV (10:05)
[2025-05-17] MEDS: SODIUM CHLORIDE 0.9 % (FLUSH) 10 ML SYRINGE IVF (10:06)
[2025-05-17 10:09] LABS: Ur HCG Qualitative* Negative (Negative)
--- NOTE | 2025-05-17 10:52 | W.PM.H&PU ---
History & Physical Update History & Physical Update H&P Reviewed and patient assessed: No changes noted
[2025-05-17] MEDS: LIDOCAINE 1% MDV 20 ML INJECTION (10:59)
[2025-05-17] MEDS: SILVER NITRATE APPLICATOR 1 EACH STICK..EA. TOPICAL (11:13)
--- NOTE | 2025-05-17 11:22 | SUR.OPER ---
Deficiet of 81
[2025-05-17 11:27] VITALS: BP 116/85; PULSE 85; RESP 16; TEMP 36.6; O2SAT 96
--- NOTE | 2025-05-17 11:27 | P.ANES_ITS ---
Anesthesia Charges Start Date/Time Anesthesia Start Date: 05/17/25 Anesthesia Start Time: 10:34 Stop Date/Time Anesthesia Stop Date: 05/17/25 Anesthesia Stop Time: 11:27 Coding CPT Codes CPT Codes: ANESTH HYSTEROSCOPE/GRAPH - 20411 ([id number]) P2 - PATIENT W/MILD SYST DISEASE, QZ - IP LITIGATION PARALEGAL SVC W/O HEDIS NURSE BY
--- NOTE | 2025-05-17 11:27 | W.ANESCHARGE ---
Anesthesia Charges Start Date/Time Anesthesia Start Date: 05/17/25 Anesthesia Start Time: 10:34 Stop Date/Time Anesthesia Stop Date: 05/17/25 Anesthesia Stop Time: 11:27 Coding CPT Codes CPT Codes: ANESTH HYSTEROSCOPE/GRAPH - 08260 ([id number]) P2 - PATIENT W/MILD SYST DISEASE, QZ - SENIOR ARCHITECTURAL DESIGNER SVC W/O COIL FORMER BY
[2025-05-17 11:30] VITALS: BP 120/82; PULSE 82; RESP 16; O2SAT 97
[2025-05-17 11:45] VITALS: BP 116/85; PULSE 85; RESP 16; O2SAT 97
[2025-05-17] MEDS: ACETAMINOPHEN 500 MG TABLET 1000 MG PO (11:50)
[2025-05-17 12:00] VITALS: BP 117/81; PULSE 82; RESP 16; O2SAT 99
[2025-05-17 12:15] VITALS: BP 118/79; PULSE 77; RESP 16; O2SAT 99
--- NOTE | 2025-05-17 12:33 | SUR.PHASEII ---
pt reports pain better after medications. see EMAR. Reivewed d/c instructions. pt verbalized ready for d/c. Ambulated to car with fha underwriter. boyfriend taking her home. minimal bloody drainage on pad.
--- NOTE | 2025-05-17 12:34 | P.GYNPRC_ITS ---
Procedure Note Date of procedure: 05/17/25 Will [facility] bill your pro fee for this procedure?: Yes Pre-op diagnosis: Menorrhagia Suspected endometrial polyp on ultrasound Post-op diagnosis: Menorrhagia Endometrial polyp Procedure: Hysteroscopy, polypectomy, visual dilation and curettage Placement of Mirena IUD Anesthesia: MAC and local Complications: None Surgeon: Maricruz Montalvo MD Estimated blood loss (mL): 5 IV fluids (mL): 700 Urine Output (mL): 10 Pathology: specimen obtained, sent to pathology (Endometrial curettings) Condition: stable Disposition: same day Findings: Saline deficit 80 mL 1. Upon pelvic exam under anesthesia, the cervix and vagina were normal in a ppearance. Uterus was mobile and anteverted, of normal size and texture. There were no palpable adnexal masses. 2. Upon hysteroscopy, survey of the endocervix was normal. Survey of the endometrial cavity revealed a normal contour and normal bilateral tubal ostia. There was a solitary endometrial polyp in the fundus measuring approximately 2 cm in greatest dimension. 3. Uterus sounded to 9 cm. Procedure Description: Procedure in detail: Patient was taken to the operating room with IV running. She was positioned in dorsal lithotomy position with her legs fully supported in Yellofin stirrups. Monitored anesthesia care was administered. She was prepped and draped in the usual sterile fashion. Exam under anesthesia was performed for the above-noted findings. Speculum was inserted. Cervix visualized and grasped along the anterior lip with a single-tooth tenaculum. Paracervical block was performed with a total of 10 mL of 1% lidocaine. Cervix was serially dilated to accommodate the TRUCLEAR hysteroscope. This was assembled with saline inflow and outflow in place. The line was flushed of bubbles. The hysteroscope was advanced through the cervix into the endometrial cavity for the above noted findings. The tissue morcellator was then inserted through the operating channel. Window lock was performed. Under direct visualization, the endometrial cavity was circumferentially curetted with the tissue morcellator, removing the polyp. The hysteroscope and morcellator were then removed from the uterus. Uterus sounds to 9 cm. The IUD is loaded into the insertion tube, inserted to the sounded depth, and the IUD is deployed. Insertion tube was removed. Strings are trimmed to 3 cm. Tenaculum was removed from the anterior lip of cervix. Hemostasis was achieved with silver nitrate. Patient tolerated procedure well. She was taken to recovery area in stable condition.
== END 2025-05-17 12:35 | disposition home or self-care (01) ==
PROVIDERS: PCP Family Medicine; Visit Provider Obstetrics & Gynecology
PROC: 0UDB8ZZ Extraction of Endometrium, Via Natural or Artificial Opening Endoscopic (ICD-10-PCS; CPT 58558; principal; 2025-05-17 10:45)
DX: N92.0 Excessive and frequent menstruation with regular cycle (principal); N84.0 Polyp of corpus uteri
CPT/HCPCS: 58558; 00952; 36415; 81025; 86850; 86900; 86901; J2003; A9270; C1782; J1885; J2250; J2405; J2704; J3010; J3490; J7120; J7298